=== PATIENT | female | born 1985 | race Caucasian/White ===

== ENCOUNTER 2017-06-06 19:10 | Emergency (ER) | payer OTHER, MEDICAID ==
[~2017-06-06] VITALS: Ht 160 cm; Wt 59.0 kg
[~2017-06-06 19:10] MED LIST: ADDERALL 5 MG TA5 M1 PO; AMITRIPTYLINE PO; AMITRIPTYLINE100 MG PO; CARAFATE 1 GM TA1 G1 PO; DECADRON; DEXAMETHASONE 22 MG; EXCEDRIN CAPLE1 EACH PO; HYDROCODONE-AP1 EAC6 PO; IMITREX 25 MG T25 M1; IMITREX100 MG PO; IRON325 PO; MIRALAX255 GM PO; NEXIUM; NORCO 5-325 TA1 EACH PO; NUVARING VAGIN1 EACH VG; ONDANSETRON HCL4 M2 PO; PAXIL10 MG PO; PHENERGAN 25 MG25 M1 PO; PRENATAL; PRILOSEC 20 MG20 MG PO; PROAIR HFA8.5 GM INH; PROTONIX40 M1 PO; TOPAMAX50 MG PO; TRAMADOL 50 MG50 MG PO; TRINATE TABLET1 TAB PO; ZOFRAN 4 MG ORAL4 MG PO; ZOFRAN ODT4 MG SUBLING; ZPAK PO
[2017-06-06] MEDS ORDERED: LINZESS290 MCG PO (19:15)
[2017-06-06] MEDS ORDERED: IRON325 PO (19:16)
[2017-06-06] MEDS ORDERED: OMEPRAZOLE 20 M20 M1 PO (19:16)
[2017-06-06 19:41] LABS: HEMATOCRIT 34.7 % (37.0-47.0); HEMOGLOBIN 10.4 gm/dL (12.0-15.0); MCH 18.8 pg (26.0-34.0); MCV 62.7 fL (80.0-100.0); MPV 9.5 fl. (7.2-11.1); NUCLEATED RBCS 0 /100WBC; PLATELET COUNT* 196 thou/uL (150-400); RBC 5.53 mil/uL (4.20-5.00); RDW-CV 18.8 % (10.5-14.5); WBC 7.9 thou/uL (4.0-11.0)
[2017-06-06 19:48] LABS: CALCIUM 9.6 mg/dL (8.5-10.1); CREATININE 0.8 mg/dL (0.6-1.3); POTASSIUM 3.5 mmol/L (3.5-5.1)
[2017-06-06 19:53] LABS: ALBUMIN 4.6 g/dL (3.4-5.0); TOTAL BILIRUBIN 0.4 mg/dL (<0.1-1.0); TOTAL PROTEIN 7.4 g/dL (6.4-8.2)
[2017-06-06 20:34] LABS: URINE BILIRUBIN NEGATIVE (Negative); URINE BLOOD NEGATIVE (Negative); URINE CLARITY CLEAR; URINE COLOR YELLOW; URINE GLUCOSE-RANDOM NEGATIVE (Negative); URINE KETONES 2+ (Negative); URINE LEUKOCYTES-REFLEX NEGATIVE (Negative); URINE NITRITE-REFLEX NEGATIVE (Negative); URINE PROTEIN NEGATIVE (Negative); URINE SPECIFIC GRAVITY 1.025 (1.005-1.030); URINE UROBILINOGEN 0.2 E.U./dl (0.2-1.0)
[2017-06-06 21:01] LABS: ABSOLUTE LYMPHOCYTES 0.5 thou/uL (0.8-5.3); ABSOLUTE MONOCYTES 0.4 thou/uL (0.0-1.2)
[2017-06-06 21:03] LABS: ANISOCYTOSIS 2+; HYPOCHROMASIA 3+; MICROCYTES 3+; PLATELET ESTIMATE ADEQUATE
[2017-06-06] MEDS ORDERED: PHENERGAN 25 MG25 M1 PO (22:54)
[2017-06-06] MEDS ORDERED: HYDROCODONE-AP1 EAC6 PO (22:54)
[2017-06-06] MEDS ORDERED: FLAGYL500 MG PO (22:54)
[2017-06-06] MEDS ORDERED: CIPROFLOXACIN500 M1 PO (22:54)
[2017-06-06 23:11] VITALS: BP 127/75
== END 2017-06-06 23:12 | disposition home or self-care (01) ==
LOC: M.ERS 19:10
PROVIDERS: Emergency Medicine
DX: R19.7 Diarrhea, unspecified (principal); G43.909 Migraine, unspecified, not intractable, without status migrainosus; Z90.89 Acquired absence of other organs; Z88.8 Allergy status to other drugs, medicaments and biological substances

== ENCOUNTER 2017-08-26 10:36 | Emergency (ER) | payer OTHER, MEDICAID ==
[~2017-08-26] VITALS: Ht 162.6 cm; Wt 59.0 kg
[~2017-08-26 10:36] MED LIST changes: +CIPROFLOXACIN500 M1 PO; +FLAGYL500 MG PO; +LINZESS290 MCG PO; +OMEPRAZOLE 20 M20 M1 PO
[2017-08-26] MEDS ORDERED: AUGMENTIN 200-1 EACH PO (10:46)
[2017-08-26] MEDS ORDERED: ADDERALL 5 MG TA5 M1 PO (10:47)
[2017-08-26] MEDS ORDERED: PHENERGAN 25 MG25 M1 PO (10:47)
[2017-08-26] MEDS ORDERED: ZOFRAN ODT4 MG PO (11:41)
[2017-08-26 11:48] VITALS: BP 108/63
== END 2017-08-26 11:55 | disposition home or self-care (01) ==
LOC: M.ERS 10:36
DX: G43.909 Migraine, unspecified, not intractable, without status migrainosus (principal); Z88.8 Allergy status to other drugs, medicaments and biological substances

== ENCOUNTER 2018-03-15 16:11 | Emergency (ER) | payer OTHER, MEDICAID ==
[~2018-03-15] VITALS: Ht 160 cm; Wt 54.4 kg
[~2018-03-15 16:11] MED LIST changes: +AUGMENTIN 200-1 EACH PO; +ZOFRAN ODT4 MG PO
[2018-03-15 16:29] LABS: URINE BILIRUBIN NEGATIVE (Negative); URINE BLOOD NEGATIVE (Negative); URINE CLARITY CLEAR; URINE COLOR YELLOW; URINE GLUCOSE-RANDOM NEGATIVE (Negative); URINE KETONES NEGATIVE (Negative); URINE LEUKOCYTES-REFLEX NEGATIVE (Negative); URINE NITRITE-REFLEX NEGATIVE (Negative); URINE PROTEIN NEGATIVE (Negative); URINE SPECIFIC GRAVITY 1.015 (1.005-1.030); URINE UROBILINOGEN 0.2 E.U./dl (0.2-1.0)
[2018-03-15] MEDS ORDERED: LEXAPRO20 MG PO (16:29)
[2018-03-15 17:13] LABS: ABSOLUTE EOSINOPHILS 0.4 thou/uL (0.0-0.7); ABSOLUTE LYMPHOCYTES 0.7 thou/uL (0.8-5.3); ABSOLUTE MONOCYTES 0.3 thou/uL (0.0-1.2); ABSOLUTE NEUTROPHILS 2.8 thou/uL (1.6-8.1); HEMATOCRIT 38.7 % (37.0-47.0); HEMOGLOBIN 12.3 gm/dL (12.0-15.0); LYMPHOCYTES 16.9 %; MCH 23.5 pg (26.0-34.0); MCHC 31.9 g/dL (28.0-37.0); MCV 73.6 fL (80.0-100.0); MONOCYTES 7.2 %; MPV 10.3 fl. (7.2-11.1); NUCLEATED RBCS 0 /100WBC; PLATELET COUNT* 130 thou/uL (150-400); POLYS 64.9 %; RBC 5.26 mil/uL (4.20-5.00); RDW-CV 16.5 % (10.5-14.5); WBC 4.3 thou/uL (4.0-11.0)
[2018-03-15 17:22] LABS: CALCIUM 9.1 mg/dL (8.5-10.1); CREATININE 0.6 mg/dL (0.6-1.3); POTASSIUM 3.1 mmol/L (3.5-5.1)
[2018-03-15 17:26] LABS: ALBUMIN 4.1 g/dL (3.4-5.0); TOTAL BILIRUBIN 0.3 mg/dL (<0.1-1.0); TOTAL PROTEIN 7.3 g/dL (6.4-8.2)
[2018-03-15] MEDS ORDERED: ZOFRAN ODT4 MG PO (18:36)
[2018-03-15] MEDS ORDERED: BENTYL 20 MG TA20 M1 PO (18:36)
[2018-03-15 18:41] VITALS: BP 123/72
== END 2018-03-15 18:43 | disposition home or self-care (01) ==
LOC: M.ERS 16:11
PROVIDERS: Nurse Practitioner Family
DX: G43.909 Migraine, unspecified, not intractable, without status migrainosus (principal); K52.9 Noninfective gastroenteritis and colitis, unspecified; Z88.8 Allergy status to other drugs, medicaments and biological substances; Z90.89 Acquired absence of other organs; Z90.10 Acquired absence of unspecified breast and nipple

== ENCOUNTER 2019-04-01 00:20 | Emergency (ER) | payer OTHER ==
[~2019-04-01] VITALS: Ht 160 cm; Wt 63.5 kg
[~2019-04-01 00:20] MED LIST changes: +BENTYL 20 MG TA20 M1 PO; +LEXAPRO20 MG PO
[2019-04-01] MEDS ORDERED: TOPROL XL25 MG (00:37)
[2019-04-01] MEDS ORDERED: AMITRIPTYLINE100 MG (00:37)
[2019-04-01] MEDS ORDERED: PHENERGAN (00:37)
[2019-04-01] MEDS ORDERED: OXYCODONE HCL 55 MG PO (03:13)
[2019-04-01] MEDS ORDERED: ZOFRAN ODT4 MG PO (03:13)
[2019-04-01 03:27] VITALS: BP 119/83
[2019-04-01 03:52] LABS: URINE BILIRUBIN NEGATIVE (Negative); URINE BLOOD NEGATIVE (Negative); URINE CLARITY CLEAR; URINE COLOR STRAW; URINE GLUCOSE-RANDOM NEGATIVE (Negative); URINE KETONES NEGATIVE (Negative); URINE LEUKOCYTES-REFLEX NEGATIVE (Negative); URINE NITRITE-REFLEX NEGATIVE (Negative); URINE PROTEIN NEGATIVE (Negative); URINE SPECIFIC GRAVITY <= 1.005 (1.005-1.030); URINE UROBILINOGEN 0.2 E.U./dl (0.2-1.0)
== END 2019-04-01 03:27 | disposition home or self-care (01) ==
LOC: M.ERS 00:20
PROVIDERS: Personal Emergency Response Attendant
DX: G43.909 Migraine, unspecified, not intractable, without status migrainosus (principal); Z88.8 Allergy status to other drugs, medicaments and biological substances

== ENCOUNTER 2020-12-15 21:48 | Emergency (ER) | payer OTHER ==
[~2020-12-15] VITALS: Ht 160 cm; Wt 54.4 kg
[~2020-12-15 21:48] MED LIST changes: +AMITRIPTYLINE100 MG; +OXYCODONE HCL 55 MG PO; +PHENERGAN; +TOPROL XL25 MG
[2020-12-15 22:06] LABS: URINE BILIRUBIN NEGATIVE (Negative); URINE BLOOD NEGATIVE (Negative); URINE CLARITY CLEAR; URINE COLOR YELLOW; URINE GLUCOSE-RANDOM NEGATIVE (Negative); URINE KETONES NEGATIVE (Negative); URINE LEUKOCYTES-REFLEX NEGATIVE (Negative); URINE NITRITE-REFLEX NEGATIVE (Negative); URINE PROTEIN NEGATIVE (Negative); URINE SPECIFIC GRAVITY 1.015 (1.005-1.030); URINE UROBILINOGEN 0.2 E.U./dl (0.2-1.0)
[2020-12-15 22:06] LABS: HEMATOCRIT 40.2 % (37.0-47.0); HEMOGLOBIN 13.1 gm/dL (12.0-15.0); MCH 25.2 pg (26.0-34.0); MCHC 32.6 g/dL (28.0-37.0); MCV 77.4 fL (80.0-100.0); MPV 9.1 fl. (7.2-11.1); NUCLEATED RBCS 0 /100WBC; PLATELET COUNT* 162 thou/uL (150-400); RBC 5.19 mil/uL (4.20-5.00); RDW-CV 15.3 % (10.5-14.5); WBC 11.1 thou/uL (4.0-11.0)
[2020-12-15 22:17] LABS: CALCIUM 8.9 mg/dL (8.5-10.1); CREATININE 0.5 mg/dL (0.6-1.3); POTASSIUM 3.9 mmol/L (3.5-5.1)
[2020-12-15 22:22] LABS: ALBUMIN 3.9 g/dL (3.4-5.0); TOTAL BILIRUBIN 0.3 mg/dL (<0.1-1.0)
[2020-12-15 22:38] LABS: ABSOLUTE LYMPHOCYTES 0.2 thou/uL (0.8-5.3); ABSOLUTE MONOCYTES 0.1 thou/uL (0.0-1.2); ABSOLUTE NEUTROPHILS 10.8 thou/uL (1.6-8.1); PLATELET ESTIMATE ADEQUATE
[2020-12-15 22:39] LABS: LARGE PLATELETS RARE
[2020-12-15] MEDS ORDERED: REGLAN10 MG PO (23:26)
[2020-12-15 23:33] VITALS: BP 132/82
== END 2020-12-15 23:34 | disposition home or self-care (01) ==
LOC: M.ERS 21:48
PROVIDERS: Emergency Medicine
DX: R11.2 Nausea with vomiting, unspecified (principal); G43.909 Migraine, unspecified, not intractable, without status migrainosus; Z90.89 Acquired absence of other organs; Z90.710 Acquired absence of both cervix and uterus; Z88.9 Allergy status to unspecified drugs, medicaments and biological substances